=== PATIENT | female | born 1965 | race Caucasian/White ===

== ENCOUNTER 2019-06-06 17:48 | Emergency (ER) | payer OTHER ==
--- NOTE | 2019-06-06 18:12 | ERPHSYRPT ---
- History of Present Illness Time Seen by Provider: 06/06/19 18:12 Source: patient Exam Limitations: no limitations Physician History: The patient is a 54-year-old female who presents with a chief complaint of a left earache. Onset reportedly was 2 days ago. She states that she has had a dry cough in addition to nasal congestion for the past week and a recorded fever of about 101 a week ago that is since resolved. She has been taken Tylenol as needed for the pain but last night she endorsed that the pain became very severe and she started to notice drainage coming from the left ear canal. Headache, sore throat, nausea, vomiting, diarrhea and abdominal pain. She denies any recent contact with anybody that is sick or any recent travel outside of the country. Associated Symptoms: cough, fever, No nausea, No vomiting, No abdominal pain, No shortness of breath, No chest pain, No headaches Allergies/Adverse Reactions: No Known Drug Allergies Allergy (Verified 06/06/19 18:04) Home Medications: Amitriptyline HCl 25 mg [Elavil 25 mg] 25 mg PO DAILY 02/27/15 [History] Aspirin 81 mg PO DAILY 02/27/15 [History] Fenofibrate 54 mg PO DAILY 02/27/15 [History] Levothyroxine Sodium [Synthroid] 100 mcg PO DAILY 02/27/15 [History] Lisinopril 20 mg [Zestril 20 MG] 20 mg PO DAILY 02/27/15 [History] Metoprolol Succinate 25 mg PO TID 02/27/15 [History] Topiramate [Topamax] 50 mg PO DAILY 02/27/15 [History] Topiramate [Topamax] 50 mg PO HS 02/27/15 [History] Buspirone HCl [Buspar] 15 mg PO BID 06/06/19 [History] Clopidogrel Bisulfate [Clopidogrel] 75 mg PO DAILY 06/06/19 [History] Ergocalciferol (Vitamin D2) [Vitamin D2] 50,000 units PO WEEKLY 06/06/19 [ History] Evolocumab [Repatha Syringe] 140 mg IM UD 06/06/19 [History] Galcanezumab-Gnlm [Emgality Syringe] 120 mg SQ UD 06/06/19 [History] Isosorbide Mononitrate 30 mg [Imdur 30 MG] 30 mg PO DAILY 06/06/19 [History ] Losartan Potassium [Cozaar] 25 mg PO DAILY 06/06/19 [History] Mirtazapine 15 mg PO DAILY 06/06/19 [History] Venlafaxine HCl [Venlafaxine HCl ER] 150 mg PO DAILY 06/06/19 [History] Hx Tetanus, Diphtheria Vaccination/Date Given: Yes (UNKNOWN) Hx Influenza Vaccination/Date Given: No Hx Pneumococcal Vaccination/Date Given: No - Review of Systems Constitutional: Fever, No Chills Eyes: No Symptoms Ears, Nose, & Throat: Ear Pain, Ear Discharge, Hearing Changes, Nose Congestion , No Mouth Pain, No Throat Pain, No Throat Swelling, No Hoarse Respiratory: Cough, No Dyspnea, No Dyspnea on Exertion ([place]), No Stridor, No Wheezing Cardiac: No Chest Pain Abdominal/Gastrointestinal: No Abdominal Pain, No Nausea, No Vomiting, No Diarrhea Genitourinary Symptoms: No Dysuria, No Frequency, No Hematuria Musculoskeletal: No Symptoms Skin: No Symptoms Neurological: No Symptoms Psychological: No Symptoms Endocrine: No Symptoms Hematologic/Lymphatic: No Symptoms All Other Systems: Reviewed and Negative - Past Medical History Pertinent Past Medical History: Yes Neurological History: Migraines, Peripheral Neuropathy, TIA Cardiac History: Angina, High Cholesterol, Hypertension, Myocardial Infarction ( [place]) Respiratory History: No Pertinent History Endocrine Medical History: Adrenal Insufficiency, Diabetes Type II, Hypothyroidism Musculoskeletal History: Osteoarthritis Other Medical History: 3 stints in her heart. - Past Surgical History Past Surgical History: Yes Cardiac: Cardiac Catheterization, Cardiac Stent - Social History Smoking Status: Never smoker Exposure to second hand smoke: No Drug Use: none Patient Lives Alone: No - Nursing Vital Signs Nursing Vital Signs: Initial Vital Signs Temperature 97.8 F 06/06/19 17:56 Pulse Rate 70 06/06/19 17:56 Respiratory Rate 16 06/06/19 17:56 Blood Pressure 188/92 06/06/19 17:56 O2 Sat by Pulse Oximetry 100 06/06/19 17:56 Pain Scale Pain Intensity 4 - Physical Exam General Appearance: no apparent distress, alert Eye Exam: PERRL/EOMI, EOM palsy/anisocoria, No scleral icterus, No pale conjunctivae Ears, Nose, Throat Exam: pharynx normal, moist mucous membranes, TM abnormal (L ) (Left TM appeared to be perforated and had otorrhea present. The otorrhea was blood-tinged. There is no signs of otitis externa. There is no tenderness or fluctuance noted over the mastoids. In the left ear.), No dry mucous membranes, No TM abnormal (R), No pharyngeal erythema, No tonsillar exudate Neck Exam: normal inspection, non-tender, supple, No meningismus Respiratory Exam: normal breath sounds, No chest tenderness, No lungs clear, No respiratory distress Cardiovascular Exam: regular rate/rhythm, normal peripheral pulses, capillary refill <2 sec, No murmur, No friction rub, No gallop Gastrointestinal/Abdomen Exam: soft Rectal Exam: deferred Back Exam: normal inspection Extremity Exam: normal inspection, No tenderness, No other Neurologic Exam: alert, oriented x 3, cooperative Skin Exam: normal color, warm, dry, No rash, No petechiae SpO2 Interpretation: normal O2 Delivery: Room Air - Course Nursing assessment & vital signs reviewed: Yes Ordered Tests: Medication Summary Discontinued Medications Generic Name Dose Route Start Last Admin Trade Name Tigre PRN Reason Stop Dose Admin Ibuprofen 400 mg 06/06/19 18:21 06/06/19 18:33 Motrin 400 Mg PO 06/06/19 18:22 400 mg STAT ONE Administration Ibuprofen Confirm 06/06/19 18:32 Motrin 400 Mg Administered 06/06/19 18:33 Dose 400 mg .ROUTE .STK-MED ONE - Progress Progress: unchanged Progress Note: 06/06/19 23:17 Nontoxic in appearance. Antibiotic suspension drops were prescribed for what appears to be otitis media with a perforated TM affecting the left ear. She was instructed to avoid swimming, submerging her head in water and to wear shower Or occlude the left external ear canal with a cotton ball to avoid water getting into the middle ear. 06/06/19 23:19 Counseled pt/family regarding: diagnosis, need for follow-up - Departure Departure Disposition: Home Clinical Impression: Acute otitis media of left ear with perforated tympanic membrane Condition: Stable Critical Care Time: No Referrals: YADI LBANCO MD [Primary Care Provider] - Instructions: Ear Infections (Otitis Media) (DC), Ruptured Eardrum (DC) Additional Instructions: Please feel free to take any acetaminophen/Tylenol and/or ibuprofen for pain. You can purchase these medications [id number]. Please take these medications as instructed on the medication bottle. Prescriptions: Benzonatate [Tessalon Perle] 100 mg PO [id number] PRN #30 capsule PRN Reason: Cough Ciprofloxacin HCl/Dexameth [Ciprodex Otic Suspension] 4 drops OT BID 10 Days #1 drops.susp Guaifenesin 600 mg ER [Mucinex 600MG ER Tabs] 600 mg PO BID #30 tablet Oxymetazoline HCl Nasal [Afrin Nasal Axis] 15 ml NS BID 3 Days #1 bottle Sodium Chloride [Saline Nasal Axis] 30 ml NS BID PRN #1 spray
[2019-06-06] MEDS ORDERED: MOTRIN 400 MG PO ONE (18:21)
[2019-06-06 18:32] VITALS: BP 188/92; PULSE 70; O2SAT 100
[2019-06-06] MEDS ORDERED: MOTRIN 400 MG ONE (18:32)
== END 2019-06-06 18:42 | disposition home or self-care (01) ==
LOC: ED 17:48
DX: H66.92 Otitis media, unspecified, left ear (principal); H72.92 Unspecified perforation of tympanic membrane, left ear; I10 Essential (primary) hypertension; E11.9 Type 2 diabetes mellitus without complications; E03.9 Hypothyroidism, unspecified; Z98.62 Peripheral vascular angioplasty status; G62.9 Polyneuropathy, unspecified
CPT/HCPCS: 99283; A9270-GY

== ENCOUNTER 2019-09-01 23:43 | Emergency (ER) | payer OTHER ==
[2019-09-02] MEDS ORDERED: Zofran 4 MG/2 ML VIAL IV ONE (00:10)
[2019-09-02] MEDS ORDERED: BABY ASPIRIN 81 MG CHEW PO ONE (00:10)
[2019-09-02] MEDS ORDERED: Sodium Chloride 0.9% 1000 ML 1,000 ML IV STA (00:10)
--- NOTE | 2019-09-02 00:17 | ERPHSYRPT ---
- History of Present Illness Time Seen by Provider: 09/01/19 23:46 Source: patient Exam Limitations: no limitations Physician History: Chest pain. Has been going on and off all week. This has been steady since earlier this evening. No falls or other trauma. No fever or chills. Patient states the pain lasts for 1 to 2 minutes. It then goes away on its own. She has no history of an [place]. She has no other anginal equivalents. No shortness of breath, nausea, vomiting, fever, chills Location: chest, center Quality: sharp Radiation: none Severity: moderate Duration: one and off all week Timing: intermittent Modifying factors/associated signs and symptoms: no other SOB, N/V Allergies/Adverse Reactions: No Known Drug Allergies Allergy (Verified 09/02/19 00:16) Home Medications: Amitriptyline HCl 25 mg [Elavil 25 mg] 25 mg PO DAILY 02/27/15 [History] Aspirin 81 mg PO DAILY 02/27/15 [History] Fenofibrate 54 mg PO DAILY 02/27/15 [History] Levothyroxine Sodium [Synthroid] 100 mcg PO DAILY 02/27/15 [History] Lisinopril 20 mg [Zestril 20 MG] 20 mg PO DAILY 02/27/15 [History] Metoprolol Succinate 25 mg PO TID 02/27/15 [History] Topiramate [Topamax] 50 mg PO DAILY 02/27/15 [History] Topiramate [Topamax] 50 mg PO HS 02/27/15 [History] Buspirone HCl [Buspar] 15 mg PO BID 06/06/19 [History] Clopidogrel Bisulfate [Clopidogrel] 75 mg PO DAILY 06/06/19 [History] Ergocalciferol (Vitamin D2) [Vitamin D2] 50,000 units PO WEEKLY 06/06/19 [ History] Evolocumab [Repatha Syringe] 140 mg IM UD 06/06/19 [History] Galcanezumab-Gnlm [Emgality Syringe] 120 mg SQ UD 06/06/19 [History] Isosorbide Mononitrate 30 mg [Imdur 30 MG] 30 mg PO DAILY 06/06/19 [History ] Losartan Potassium [Cozaar] 25 mg PO DAILY 06/06/19 [History] Mirtazapine 15 mg PO DAILY 06/06/19 [History] Venlafaxine HCl [Venlafaxine HCl ER] 150 mg PO DAILY 06/06/19 [History] Hx Tetanus, Diphtheria Vaccination/Date Given: Yes (UNKNOWN) Hx Influenza Vaccination/Date Given: No Hx Pneumococcal Vaccination/Date Given: No - Review of Systems Constitutional: No Fever, No Chills Eyes: No Symptoms Ears, Nose, & Throat: No Symptoms Respiratory: No Cough, No Dyspnea Cardiac: Chest Pain, No Edema, No Syncope Abdominal/Gastrointestinal: No Abdominal Pain, No Nausea, No Vomiting, No Diarrhea Genitourinary Symptoms: No Dysuria Musculoskeletal: No Back Pain, No Neck Pain Skin: No Rash Neurological: No Dizziness, No Focal Weakness, No Sensory Changes Psychological: No Symptoms Endocrine: No Symptoms All Other Systems: Reviewed and Negative - Past Medical History Pertinent Past Medical History: Yes Neurological History: Migraines, Peripheral Neuropathy, TIA ENT History: No Pertinent History Cardiac History: Angina, High Cholesterol, Hypertension, Myocardial Infarction ( [place]) Respiratory History: No Pertinent History Endocrine Medical History: Adrenal Insufficiency, Diabetes Type II, Hypothyroidism Musculoskeletal History: Osteoarthritis GI Medical History: No Pertinent History History: No Pertinent History Psycho-Social History: No Pertinent History Female Reproductive Disorders: No Pertinent History Other Medical History: 3 stents in her heart. - Past Surgical History Past Surgical History: Yes Neuro Surgical History: No Pertinent History Cardiac: Cardiac Catheterization, Cardiac Stent Respiratory: No Pertinent History Gastrointestinal: No Pertinent History Genitourinary: No Pertinent History Musculoskeletal: No Pertinent History Female Surgical History: No Pertinent History - Social History Smoking Status: Never smoker Exposure to second hand smoke: No Drug Use: none Patient Lives Alone: No - Nursing Vital Signs Nursing Vital Signs: Initial Vital Signs Temperature 97.6 F 09/02/19 00:06 Pulse Rate 74 09/02/19 00:06 Respiratory Rate 18 09/02/19 00:06 Blood Pressure 128/76 09/02/19 00:06 O2 Sat by Pulse Oximetry 100 09/02/19 00:06 Pain Scale Pain Intensity 7 - Physical Exam General Appearance: no apparent distress, alert Eye Exam: PERRL/EOMI, eyes nml inspection Ears, Nose, Throat Exam: normal ENT inspection, TMs normal, pharynx normal, moist mucous membranes Neck Exam: normal inspection, non-tender, supple, full range of motion Respiratory Exam: normal breath sounds, lungs clear, No respiratory distress Cardiovascular Exam: regular rate/rhythm, normal heart sounds, normal peripheral pulses Gastrointestinal/Abdomen Exam: soft, normal bowel sounds, No tenderness, No mass Back Exam: normal inspection, normal range of motion, No CVA tenderness, No vertebral tenderness Extremity Exam: normal inspection, normal range of motion, pelvis stable Neurologic Exam: alert, oriented x 3, cooperative, normal mood/affect, nml cerebellar function, nml station & gait, sensation nml, No motor deficits Skin Exam: normal color, warm, dry, No rash Lymphatic Exam: No adenopathy SpO2: 100 - Course Nursing assessment & vital signs reviewed: Yes EKG Interpreted by Me: RATE, Sinus Rhythm, Other (Sinus rhythm with no ischemic changes.) Ordered Tests: Active Orders 24 hr Category Date Time Status EKG-ER Only STAT Care 09/02/19 00:10 Active IV Insertion STAT Care 09/02/19 00:10 Active CHEST 2 VIEWS (PA AND LAT) Stat Exams 09/02/19 00:10 Taken CBC W DIFF Stat Lab 09/02/19 00:26 Completed CMP Stat Lab 09/02/19 00:26 Completed NT PRO BNP Stat Lab 09/02/19 00:26 Completed TROPONIN Q3H Lab 09/02/19 00:26 Completed TROPONIN Q3H Lab 09/02/19 03:15 Ordered TROPONIN Q3H Lab 09/02/19 06:15 Ordered TROPONIN Q3H Lab 09/02/19 09:15 Ordered TROPONIN Q3H Lab 09/02/19 12:15 Ordered Medication Summary Generic Name Dose Route Start Last Admin Trade Name Freq PRN Reason Stop Dose Admin Sodium Chloride 1,000 mls @ 999 mls/hr 09/02/19 00:10 09/02/19 00:50 Sodium Chloride 0.9% 1000 Ml IV 09/02/19 01:10 999 mls/hr .Q1H1M STA Administration Discontinued Medications Generic Name Dose Route Start Last Admin Trade Name Freq PRN Reason Stop Dose Admin Aspirin 162 mg 09/02/19 00:10 09/02/19 00:49 Baby Aspirin 81 Mg Chew PO 09/02/19 00:11 162 mg STAT ONE Administration Aspirin Confirm 09/02/19 00:46 Baby Aspirin 81 Mg Chew Administered 09/02/19 00:47 Dose 81 mg .ROUTE .STK-MED ONE Sodium Chloride Confirm 09/02/19 00:46 Sodium Chloride 0.9% 1000 Ml Administered 09/02/19 00:47 Dose 1,000 mls @ ud .ROUTE .STK-MED ONE Ondansetron HCl 4 mg 09/02/19 00:10 09/02/19 00:50 Zofran 4 Mg/2 Ml Vial IV 09/02/19 00:11 4 mg STAT ONE Administration Ondansetron HCl Confirm 09/02/19 00:46 Zofran 4 Mg/2 Ml Vial Administered 09/02/19 00:47 Dose 4 mg .ROUTE .STK-MED ONE Lab/Rad Data: Laboratory Result Diagrams 09/02/19 00:26 09/02/19 00:26 Laboratory Results 09/02/19 09/02/19 09/02/19 Range/Units 00:26 00:26 00:26 WBC 6.5 (4.0-10.5) K/mm3 RBC 4.23 (4.1-5.4) M/mm3 Hgb 13.2 (12.0-16.0) gm/dl Hct 39.8 (35-47) % MCV 94.1 (78-100) fl MCH 31.2 (26-32) pg MCHC 33.2 (32-36) g/dl RDW 13.2 (11.5-14.0) % Plt Count 212 (150-450) K/mm3 MPV 10.6 (7.5-11.0) fl Gran % 49.9 (36.0-66.0) % Eos # (Auto) 0.30 (0-0.5) Absolute Lymphs (auto) 2.49 (1.0-4.6) Absolute Monos (auto) 0.38 (0.0-1.3) Lymphocytes % 38.6 (24.0-44.0) % Monocytes % 5.9 (0.0-12.0) % Eosinophils % 4.7 (0.00-5.0) % Basophils % 0.9 (0.0-0.4) % Absolute Granulocytes 3.22 (1.4-6.9) Basophils # 0.06 (0-0.4) Sodium 137 (137-145) mmol/L Potassium 4.1 (3.5-5.1) mmol/L Chloride 104 (98-107) mmol/L Carbon Dioxide 25 (22-30) mmol/L Anion Gap 11.8 (5-15) MEQ/L BUN 10 (7-17) mg/dL Creatinine 0.96 (0.52-1.04) mg/dL Estimated GFR > 60.0 ML/MIN Glucose 268 H (74-106) mg/dL Calcium 9.4 (8.4-10.2) mg/dL Total Bilirubin 0.30 (0.2-1.3) mg/dL AST 33 (14-36) U/L ALT 32 (0-35) U/L Alkaline Phosphatase 182 H (38-126) U/L Troponin I < 0.012 (0.000-0.034) ng/mL NT-Pro-B Natriuret Pep 106 (0-900) pg/mL Serum Total Protein 6.8 (6.3-8.2) g/dL Albumin 3.7 (3.5-5.0) g/dL - Progress Progress: improved Progress Note: 09/02/19 00:18 We'll obtain basic labs, fluids, EKG, troponin, chest x-ray - I feel comfortable with one time negative troponin given symptoms have improved and started greater then 6 hours ago. - EKG shows no ST changes - my read. See full read below. - O2 saturations consistently greater than 95%. - CXR shows no pneumonia, pneumothorax - my read - no other obvious lab abnormalities 09/02/19 01:03 Patient feeling improved. Labs work-up largely unremarkable. Patient return here for any new or changing symptoms. Follow-up with PCP as needed - Departure Departure Disposition: Home Clinical Impression: Atypical chest pain Condition: Stable Critical Care Time: No Referrals: YADI BLANCO MD [Primary Care Provider] - Instructions: Atypical Chest Pain
[2019-09-02 00:30] LABS: Absolute Neutrophil Ct (ANC) 3.22 (1.4-6.9); BASOPHIL % 0.9 % (0.0-0.4); Basophil (Absolute #) 0.06 (0-0.4); Eosinophil % 4.7 % (0.00-5.0); Hematocrit 39.8 % (35-47); Hemoglobin 13.2 gm/dl (12.0-16.0); Lymphocyte (Absolute #) 2.49 (1.0-4.6); Lymphocytes % 38.6 % (24.0-44.0); Mean Cell Volume 94.1 fl (78-100); Mean Corpuscular Hemoglobin 31.2 pg (26-32); Mean Corpuscular Hgb Concent. 33.2 g/dl (32-36); Mean Platelet Volume 10.6 fl (7.5-11.0); Monocyte (Absolute #) 0.38 (0.0-1.3); Monocytes % 5.9 % (0.0-12.0); Neutrophil % 49.9 % (36.0-66.0); Platelet Count 212 K/mm3 (150-450); Red Blood Count 4.23 M/mm3 (4.1-5.4); Red Cell Distribution Width 13.2 % (11.5-14.0); White Blood Count 6.5 K/mm3 (4.0-10.5)
[2019-09-02] MEDS ORDERED: BABY ASPIRIN 81 MG CHEW ONE (00:46)
[2019-09-02] MEDS ORDERED: Zofran 4 MG/2 ML VIAL ONE (00:46)
[2019-09-02] MEDS ORDERED: Sodium Chloride 0.9% 1000 ML 1,000 ML ONE (00:46)
[2019-09-02 00:51] LABS: ALBUMIN 3.7 g/dL (3.5-5.0); ALKALINE PHOSPHATASE 182 U/L (38-126); ANION GAP 11.8 MEQ/L (5-15); BLOOD UREA NITROGEN 10 mg/dL (7-17); CHLORIDE 104 mmol/L (98-107); Calcium 9.4 mg/dL (8.4-10.2); Carbon Dioxide 25 mmol/L (22-30); Creatinine 1 0.96 mg/dL (0.52-1.04); Glucose 268 mg/dL (74-106); NT PRO BNP 106 pg/mL (0-900); Potassium 4.1 mmol/L (3.5-5.1); SGOT/AST 33 U/L (14-36); SGPT/ALT 32 U/L (0-35); SODIUM 137 mmol/L (137-145); Total Protein 6.8 g/dL (6.3-8.2)
[2019-09-02 01:11] VITALS: BP 104/68; PULSE 67; O2SAT 97
--- NOTE | 2019-09-02 06:30 | XRAY ---
Indication: Chest pain. History pleurisy. Comparison: None PA/lateral chest clear. Heart and mediastinal structures within normal limits. Bony thorax intact with mild degenerative changes. Impression: Nonacute chest.
== END 2019-09-02 01:29 | disposition home or self-care (01) ==
LOC: ED 23:43
DX: R07.89 Other chest pain (principal); Z79.899 Other long term (current) drug therapy; G62.9 Polyneuropathy, unspecified; E03.9 Hypothyroidism, unspecified; I10 Essential (primary) hypertension; E78.00 Pure hypercholesterolemia, unspecified; I25.2 Old myocardial infarction; E11.9 Type 2 diabetes mellitus without complications; E27.40 Unspecified adrenocortical insufficiency
CPT/HCPCS: 36000; 36415; 71046; 80053; 83880; 84484; 85025; 93005; 96360; 96374; 99284; J2405; A9270-GY

== ENCOUNTER 2019-10-09 11:30 | Emergency (ER) | payer OTHER ==
--- NOTE | 2019-10-09 11:34 | ERPHSYRPT ---
- History of Present Illness Time Seen by Provider: 10/09/19 11:45 Source: patient Exam Limitations: no limitations Physician History: This is a 54-year-old white female who has hypertension and is taking Plavix who fell this morning after stepping out of her bed. She complains of right knee pain. She does not recall exactly how she fell. She did not hit her head she has no pain anywhere else on her body just her right knee which slightly bruised and slightly swollen anteriorly. Method of Injury: fell Occurred: this morning Quality: aching Severity of Pain-Max: moderate Severity of Pain-Current: moderate Lower Extremities Pain: knee: right Modifying Factors: Improves With: movement Associated Symptoms: other (Patient is able to bear weight but it just hurts to do so) Allergies/Adverse Reactions: No Known Drug Allergies Allergy (Verified 10/09/19 11:41) Home Medications: Amitriptyline HCl 25 mg [Elavil 25 mg] 25 mg PO DAILY 02/27/15 [History] Aspirin 81 mg PO DAILY 02/27/15 [History] Fenofibrate 54 mg PO DAILY 02/27/15 [History] Levothyroxine Sodium [Synthroid] 100 mcg PO DAILY 02/27/15 [History] Lisinopril 20 mg [Zestril 20 MG] 20 mg PO DAILY 02/27/15 [History] Metoprolol Succinate 25 mg PO TID 02/27/15 [History] Topiramate [Topamax] 50 mg PO DAILY 02/27/15 [History] Topiramate [Topamax] 50 mg PO HS 02/27/15 [History] Buspirone HCl [Buspar] 30 mg PO BID 06/06/19 [History] Clopidogrel Bisulfate [Clopidogrel] 75 mg PO DAILY 06/06/19 [History] Ergocalciferol (Vitamin D2) [Vitamin D2] 50,000 units PO WEEKLY 06/06/19 [History] Evolocumab [Repatha Syringe] 140 mg IM UD 06/06/19 [History] Galcanezumab-Gnlm [Emgality Syringe] 120 mg SQ UD 06/06/19 [History] Isosorbide Mononitrate 30 mg [Imdur 30 MG] 30 mg PO DAILY 06/06/19 [History] Losartan Potassium [Cozaar] 25 mg PO DAILY 06/06/19 [History] Mirtazapine 15 mg PO DAILY 06/06/19 [History] Venlafaxine HCl [Venlafaxine HCl ER] 150 mg PO DAILY 06/06/19 [History] Hx Tetanus, Diphtheria Vaccination/Date Given: Yes (UNKNOWN) Hx Influenza Vaccination/Date Given: No Hx Pneumococcal Vaccination/Date Given: No Travel Risk - International Travel Have you traveled outside of the country in past 3 weeks: No - Coronavirus Screening Are you exhibiting any of the following symptoms?: No Close contact with a COVID-19 positive Pt in past 14-21 Days: No - Review of Systems Constitutional: No Symptoms Eyes: No Symptoms Ears, Nose, & Throat: No Symptoms Respiratory: No Symptoms Cardiac: No Symptoms Abdominal/Gastrointestinal: No Symptoms Genitourinary Symptoms: No Symptoms Musculoskeletal: Fall, Injury (Right knee) Skin: No Symptoms Neurological: No Symptoms Psychological: No Symptoms Endocrine: No Symptoms Hematologic/Lymphatic: No Symptoms Immunological/Allergic: No Symptoms All Other Systems: Reviewed and Negative - Past Medical History Pertinent Past Medical History: Yes Neurological History: Migraines, Peripheral Neuropathy, TIA ENT History: No Pertinent History Cardiac History: Angina, High Cholesterol, Hypertension, Myocardial Infarction ([place]) Respiratory History: No Pertinent History Endocrine Medical History: Adrenal Insufficiency, Diabetes Type II, Hypothyroidism Musculoskeletal History: Osteoarthritis GI Medical History: No Pertinent History History: No Pertinent History Psycho-Social History: No Pertinent History Female Reproductive Disorders: No Pertinent History Other Medical History: 3 stents in her heart. - Past Surgical History Past Surgical History: Yes Neuro Surgical History: No Pertinent History Cardiac: Cardiac Catheterization, Cardiac Stent Respiratory: No Pertinent History Gastrointestinal: No Pertinent History Genitourinary: No Pertinent History Musculoskeletal: No Pertinent History Female Surgical History: No Pertinent History - Social History Smoking Status: Never smoker Exposure to second hand smoke: No Drug Use: none Patient Lives Alone: No - Nursing Vital Signs Nursing Vital Signs: Pain Scale Pain Intensity 6 - Physical Exam General Appearance: no apparent distress, alert, anxiety Eyes, Ears, Nose, Throat Exam: normal ENT inspection, moist mucous membranes Neck Exam: normal inspection, non-tender, supple, full range of motion Cardiovascular/Respiratory Exam: chest non-tender, no respiratory distress Gastrointestinal/Abdominal Exam: non-tender Back Exam: normal inspection, normal range of motion, No CVA tenderness, No vertebral tenderness Hips Exam: bilateral: non-tender, normal inspection, normal range of motion, no evidence of injury Legs Exam: bilateral leg: non-tender, normal inspection, normal range of motion, no evidence of injury Knees Exam: right knee: ecchymosis, soft tissue tenderness, swelling, left knee: non-tender, normal inspection, normal range of motion, no evidence of injury Ankle Exam: bilateral ankle: non-tender, normal inspection, normal range of motion, no evidence of injury Foot Exam: bilateral foot: non-tender, normal inspection, normal range of motion, no evidence of injury Neuro/Tendon Exam: normal sensation, normal motor functions, normal tendon functions, responds to pain, no evidence tendon injury Mental Status Exam: alert, oriented x 3, cooperative Skin Exam: ecchymosis SpO2 Interpretation: normal O2 Delivery: Room Air - Course Nursing assessment & vital signs reviewed: Yes Ordered Tests: Active Orders 24 hr Category Date Time Status Cold Application STAT Care 10/09/19 11:43 Active KNEE (3 VIEWS) Stat Exams 10/09/19 11:43 Completed Medication Summary Generic Name Dose Route Start Last Admin Trade Name Carq PRN Reason Stop Dose Admin Acetaminophen 650 mg 10/09/19 12:26 Tylenol 325 Mg PO 10/09/19 12:27 STAT STA - Progress Progress: unchanged, pain not gone completely Progress Note: 10/09/19 12:28 X-ray of right knee reveals no evidence of any acute fracture or dislocation. Counseled pt/family regarding: diagnosis, need for follow-up, rad results - Departure Departure Disposition: Home Clinical Impression: Right knee sprain Condition: Stable Critical Care Time: No Referrals: YADI BLANCO MD [Primary Care Provider] - [facility]-Ortho M-F [id number] Additional Instructions: Ice pack to right knee 3 times a day for the next 72 hours. Use Tylenol for pain control. Follow-up with the [facility] orthopedic clinic for persistent symptoms.
--- NOTE | 2019-10-09 12:12 | XRAY ---
Indication: Pain and swelling following fall. Comparison: None 3 view right knee demonstrates anterior soft tissue swelling. No other bony, articular, or soft tissue abnormalities.
[2019-10-09] MEDS ORDERED: TYLENOL 325 MG PO STA (12:26)
[2019-10-09] MEDS ORDERED: TYLENOL 325 MG ONE (12:29)
[2019-10-09 12:35] VITALS: BP 137/83; PULSE 85; O2SAT 99
== END 2019-10-09 12:40 | disposition home or self-care (01) ==
LOC: ED 11:30
DX: S83.91XA Sprain of unspecified site of right knee, initial encounter (principal); W18.39XA Other fall on same level, initial encounter; Y93.89 Activity, other specified; Y92.89 Other specified places as the place of occurrence of the external cause
CPT/HCPCS: 73562; 99284; A9270-GY

== ENCOUNTER 2023-06-18 19:48 | Emergency (ER) | payer MEDICARE ==
[2023-06-18 20:16] VITALS: PULSE 79; TEMP 98.1; O2SAT 97
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
[2023-06-18 22:20] VITALS: BP 104/64; RESP 22
--- NOTE | 2023-06-19 08:00 | XRAY ---
Indication: Status post fall. Blood thinner therapy. Multiple contiguous axial images obtained through the head without contrast. Comparison: February 27, 2015 Normal appearing brain parenchyma, ventricles, and bony calvarium for patient's age. Visualized paranasal sinuses and mastoid air cells are clear. Impression: Continued normal CT head without contrast exam.
== END 2023-06-18 22:25 | disposition home or self-care (01) ==
LOC: ED 19:48
DX: S01.01XA Laceration without foreign body of scalp, initial encounter (principal); W18.39XA Other fall on same level, initial encounter; Y93.E2 Activity, laundry; E78.5 Hyperlipidemia, unspecified; I10 Essential (primary) hypertension; E11.42 Type 2 diabetes mellitus with diabetic polyneuropathy; Z79.02 Long term (current) use of antithrombotics/antiplatelets; Z79.899 Other long term (current) drug therapy
CPT/HCPCS: 12001; 70450; 99283

== ENCOUNTER 2024-04-15 10:16 | Emergency (ER) | payer MEDICARE ==
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
[2024-04-15 10:39] VITALS: TEMP 98.7
[2024-04-15] MEDS ORDERED: KEFLEX 500 MG ONE (11:04)
[2024-04-15] MEDS ORDERED: BACIGUENT PACKET ONE (11:04)
[2024-04-15] MEDS ORDERED: Adacel Vial IM ONE (11:04)
[2024-04-15] MEDS: KEFLEX 500 MG PO ONE (11:05)
[2024-04-15] MEDS: Adacel Vial IM ONE (11:05)
[2024-04-15] MEDS: BACIGUENT PACKET TP ONE (11:06)
[2024-04-15 12:53] VITALS: PULSE 76; RESP 16
[2024-04-15 13:26] VITALS: BP 151/83; O2SAT 99
[2024-04-15] MEDS ORDERED: TYLENOL 325 MG ONE (13:29)
[2024-04-15] MEDS: TYLENOL 325 MG PO ONE (13:30)
== END 2024-04-15 13:44 | disposition left against medical advice (07) ==
LOC: ED 10:16
DX: T23.201A Burn of second degree of right hand, unspecified site, initial encounter (principal); X10.2XXA Contact with fats and cooking oils, initial encounter; L03.113 Cellulitis of right upper limb; I10 Essential (primary) hypertension; E78.5 Hyperlipidemia, unspecified; E11.42 Type 2 diabetes mellitus with diabetic polyneuropathy; Z79.02 Long term (current) use of antithrombotics/antiplatelets; Z79.891 Long term (current) use of opiate analgesic; Z79.899 Other long term (current) drug therapy; Z59.82 Transportation insecurity; Z23 Encounter for immunization
CPT/HCPCS: 90471; 90715; 99283; 99285; A9270-GY